=== PATIENT | male | born 1995 | race Caucasian/White ===

== ENCOUNTER 2017-02-07 11:19 | Emergency (ER) | payer MEDICAID ==
[2017-02-07] MEDS ORDERED: LORazepam 2 MG/ML DISP.SYRIN IV ONE (11:24)
[2017-02-07] MEDS ORDERED: NORMAL SALINE 1,000 ML IV ONE (11:24)
[2017-02-07] MEDS ORDERED: LORazepam 2 MG/ML DISP.SYRIN ONE (11:25)
[2017-02-07 11:40] LABS: Hematocrit 44.8 % (42.0-52.0); Hemoglobin 14.8 gm/dL (13.5-18.0); Mean Cell Volume 91.2 fl (78-100); Mean Corpuscular Hemoglobin 30.1 pg (27-31); Mean Platelet Volume 9.1 fl (6.0-9.5); Neutrophil # 4.9 K/mm3 (1.3-6.0); Neutrophil % 55.3 % (42-75.0); Platelet Count 277 K/mm3 (150-450); Red Blood Count 4.91 M/mm3 (4.7-6.0); Red Cell Distribution Width 13.8 % (11.5-14.0); White Blood Count 8.8 K/mm3 (4.0-10.5)
[2017-02-07 11:53] LABS: ALT 35 U/L (19-67); AST 31 U/L (0-48); Albumin * 4.1 gm/dl (3.4-5.0); Alkaline Phosphatase * 78 U/L (50-170); BUN/Creatinine Ratio 10.6 (9.0-21.6); Bilirubin, Total 0.6 mg/dL (0.0-1.1); Blood Urea Nitrogen 17 mg/dL (6-23); Ca. Corrected For Albumin 8.9 mg/dL (8.4-10.2); Calcium * 9.3 mg/dL (7.9-10.9); Carbon Dioxide 15.4 mmol/L (24-32.6); Chloride 105 mmol/L (97-106); Glucose * 146 mg/dL (70-110); Magnesium 2.2 mg/dL (1.2-2.8); Potassium 4.4 mmol/L (3.4-4.6); Sodium 144 mmol/L (132-142); Total Protein 7.2 gm/dL (6.2-8.2)
--- OUTSIDE RECORDS SUMMARY | 2017-02-07 11:59 | XMS REPORT | Continuity of Care Document ---
:1995 Author Organization [facility] ([facility]) Address [address] [place] [address] Phone [phone] Care Team Providers Name Role Phone Jose Zavaleta Primary Care Provider [phone] Source Comments This disclosure is being made pursuant to the Care Everywhere program, applicable federal and state laws, and may not contain all informaitonavailable regarding this patient.[facility] ([facility]) Active Allergies and Adverse Reactions No Known Allergies Current Medications Prescription Sig. Disp. Refills Start Date End Date Status TAZORAC 0.1 % gel gel 6 12/01/2014 Active CLINDAMYCIN 1 % gel 6 01/29/2015 Active doxycycline monohydrate Take 100 mg by Active 100 mg tablet mouth 2 times daily Active Problems Problem Noted Date Shoulder instability 07/02/2014 Left shoulder pain 07/02/2014 Labral tear of shoulder 07/02/2014 Bankart lesion of left shoulder 07/02/2014 Social History Tobacco Use Types Packs/Day Years Used Date Never Smoker Smokeless Tobacco: Never Used Last Filed Vital Signs Vital Sign Reading Time Taken Blood Pressure 129/67 02/09/2015 8:16 AM CDT Pulse 76 02/09/2015 8:16 AM CDT Temperature 37.3 C (99.1 F) 02/09/2015 8:16 AM CDT Respiratory Rate 18 02/09/2015 12:46 PM CDT Height 1.778 m (5' 10") 02/08/2015 2:30 PM CDT Weight 76.3 kg (168 lb 3.4 oz) 02/08/2015 2:30 PM CDT Body Mass Index 24.14 02/08/2015 2:30 PM CDT Oxygen Saturation 98% 02/09/2015 8:16 AM CDT Plan of Care Health Maintenance Due Date Last Done Comments Hepatitis B Vaccine (1 of 3 - Primary Series) 1997 HPV Vaccine (1 of 3 - Male 3 Dose Series) 2008 Tdap Vaccine 2008 Meningococcal Vaccine (1 of 1) 2013 Lipid Disorder Screening 2015 MMR Vaccine 2015 Td Vaccine 2015 Varicella Vaccine (1 of 2 - Adult - No Evidence of 2015 Immunity) Influenza Vaccine: Seasonal (Season Ended) 2017 Results from Last 3 Months Not on file
[2017-02-07 12:27] LABS: Urine Bilirubin Negative (NEGATIVE); Urine Ketone Negative (NEGATIVE); Urine Nitrite Negative (NEGATIVE); Urine Protein 30 mg/dL (NEGATIVE); Urine Specific Gravity 1.025 SP.GR. (1.005-1.030); Urine Urobilinogen Normal (NORMAL)
[2017-02-07 12:38] LABS: Urine Appearance Clear; Urine Bacteria TRACE; Urine Blood 10 /ul (NEGATIVE); Urine Color Yellow; Urine RBC None Seen /hpf (0-5); Urine WBC None Seen /hpf (0-5)
[2017-02-07 13:03] LABS: Cocaine Ur Negative (NEGATIVE); Urine Barbiturate Negative (NEGATIVE); Urine Opiates Negative (NEGATIVE); Urine PCP Negative (NEGATIVE)
[2017-02-07 13:08] LABS: Urine Benzodiazepines Positive (NEGATIVE); Urine THC Positive (NEGATIVE)
--- NOTE | 2017-02-07 13:56 | ERNOTE ---
Neuro HPI ER Record Presenting Symptoms: other - seizure activity Time Seen by Provider: 02/07/17 11:23 Source: patient, EMS Exam Limitations: no limitations - pt was post-ictal when the ambulance arrived Immunizations: IMMUNIZATION HX Immunizations Up to Date Yes History of Influenza Vaccine No Hx Pneumococcal Vaccination No Allergies/Adverse Reactions: Allergies Allergy/AdvReac Type Severity Reaction Status Date / Time isotretinoin [From Accutane] Allergy Intermediate Other Verified 05/02/16 15:47 Home Medications: HOME MEDICATIONS Albuterol Sulfate [Proair Hfa] 1 - 2 puff IH Q4H PRN 02/07/17 [Last Taken Unknown] Doxycycline Hyclate [Vibratab] 100 mg PO DAILY 02/07/17 [Last Taken Unknown] Tazarotene [Tazorac] 1 appl TP DAILY 02/07/17 [Last Taken Unknown] - History of Present Illness Narrative: Patient was working outside in the [employer] and he apparently was not drinking adequate fluids started sweating profusely got what he said was felt a little bit weak and then had a brief episode of seizures. The patient is not seizing at this time and the postictal period had resolved by the time he got to the emergency room. Onset: sudden onset Severity: moderate - Character of Deficits Baseline Cognition: Present: alert, oriented x 4 Baseline Gait: Present: walks w/o assistance Associated Symptoms: Reports: sweating Review of Systems - Review of Systems Constitutional: Present: See HPI, diaphoresis EYE: Present: no symptoms reported ENT: Present: no symptoms reported Respiratory: Present: no symptoms reported Cardiology: Present: no symptoms reported Gastrointestinal/Abdominal: Present: no symptoms reported Genitourinary: Present: no symptoms reported Musculoskeletal: Present: no symptoms reported Skin: Present: no symptoms reported Neurological: Present: no symptoms reported Endocrine: Present: no symptoms reported Hematologic/Lymphatic: Present: no symptoms reported Psych: Present: no symptoms reported - Patient's Past Medical History Patient History - Medical: Bipolar, Other Patient History - Cardiac/Respiratory: No pertinent hx Patient History - Cancer: No Hx of Cancer Patient History - Surgical Procedures: T & A, Other Patient History - Other: None - Social History Living Situations: home Abuse History: Hx of Substance Use Psych History: Hx of Bipolar Disorder, Current tx/ever been on anti-depressants or anti-anxiety meds Smoking Status: Never smoker Have you smoked in the past 12 months: No Alcohol Use: none Drug Use: none - Immunizations Immunizations Up to Date: Yes Hx Pneumococcal Vaccination: No History of Influenza Vaccine: No Physical Exam - Physical Exam General Appearance: Present: wd/wn, alert, no apparent distress Eye Exam: Normal inspection: bilateral, PERRL: bilateral Ears, Nose, Throat: Present: normal ENT inspection, H, normal pharynx Neck: Present: normal inspection, nontender Respiratory: Present: no respiratory distress, normal breath sounds, no accessory muscle use, chest nontender, lungs clear Cardiovascular/Chest: Present: regular rate, rhythm, no murmur, normal peripheral pulses Gastrointestinal/Abdominal: Present: normal bowel sounds, nontender, nondistended, soft, no organomegaly Rectal Exam: Present: deferred Back Exam: Present: normal inspection, normal range of motion Extremity Exam: Present: normal inspection, non-tender, no edema, normal range of motion Neurological Exam: Present: alert, oriented, normal mood/affect Skin Exam: Present: normal color, diaphoresis Lymphatic Exam: Present: no adenopathy ED Progress - Results and Orders Patient's Lab Results:: I have reviewed the patient's lab results. - Vital Signs Patient's Vital Signs:: I have reviewed the patient's vital signs. Vital Signs: Vital Signs 02/07/17 02/07/17 02/07/17 11:21 11:30 11:58 Temperature 36.2 C L Pulse Rate 97 104 H 98 Respiratory 20 19 Rate Blood Pressure 144/69 141/68 O2 Sat by Pulse 97 100 Oximetry - Progress/Reassessment Chief Complaint: Seizure Activity Progress:: Improved Plan - Plan Plan: Patient has continued to improve entire time is in the emergency department. While I do believe that there is a component of dehydration present this patient , we have to consider that possibly the amphetamine and benzodiazepine and/or the marijuana use has been contributing to some of this process as well. Patient will be sent home in improved condition he will follow-up with his family physician and arrange for an outpatient EEG. Departure Clinical Impression: Dehydration, Drug use - Departure Disposition: Home self-care Condition: Good Instructions: Dehydration, Adult, [id number]
[2017-02-07 14:22] VITALS: BP 134/80
== END 2017-02-07 14:15 | disposition home or self-care (01) ==
LOC: ER 11:19
DX: E86.0 Dehydration (principal); F19.90 Other psychoactive substance use, unspecified, uncomplicated
CPT/HCPCS: 36415; 80053; 80307; 81001; 82550; 83735; 85025; 96360; 96374; 99284; G0481

== ENCOUNTER 2017-02-17 14:06 | Emergency (ER) | payer MEDICAID ==
--- OUTSIDE RECORDS SUMMARY | 2017-02-17 14:29 | XMS REPORT | Continuity of Care Document ---
:1995 Author Organization [facility] ([facility]) Address [address] [place] [address] Phone [phone] Care Team Providers Name Role Phone Jose Zavaleta Primary Care Provider [phone] Source Comments This disclosure is being made pursuant to the Care Everywhere program, applicable federal and state laws, and may not contain all informaitonavailable regarding this patient.[facility] ([facility]) Active Allergies and Adverse Reactions No [...]
[2017-02-17] MEDS ORDERED: NORMAL SALINE 1,000 ML IV ONE (14:35)
--- NOTE | 2017-02-17 14:48 | ERNOTE ---
Neuro HPI ER Record Presenting Symptoms: other - seizure Time Seen by Provider: 02/17/17 14:20 Source: patient, family Exam Limitations: no limitations Immunizations: IMMUNIZATION HX Immunizations Up to Date Yes History of Influenza Vaccine No Hx Pneumococcal Vaccination No Allergies/Adverse Reactions: Allergies Allergy/AdvReac Type Severity Reaction Status Date / Time isotretinoin [From Accutane] Allergy Intermediate Other Verified 02/17/17 14:17 Home Medications: HOME MEDICATIONS Adderall 10 mg Tablet 02/17/17 [Last Taken Unknown] Ativan 02/17/17 [Last Taken Unknown] Xanax 02/17/17 [Last Taken Unknown] - History of Present Illness Narrative: Patient has no established seizure history. Per his mother he had one seizure at age 18 possible related to the medication he was taking at that time, no seizure since till 02/17/17. At that day he was working in the heat, had a brief seizure that had resolved on arrival in the ER and he was discharged, did not follow up with his PCP yet. Today he was walking to the gas station when he collapsed and possibly had a seizure again observed by friends, reported to EMS. On arrival in the ER patient complaints of headache only, denies any injury , is sweating profusely. Admits to using THC, denies any other drugs besides besides his prescription adderal and benzos. He is seeing a psychiatrist in [place] now. Date (Duration): 02/17/17 Time (Timing): 13:45 - Patient's Past Medical History Patient History - Medical: ADHD, Bipolar, Other Patient History - Cardiac/Respiratory: No pertinent hx Patient History - Cancer: No Hx of Cancer Patient History - Surgical Procedures: T & A, Other Patient History - Other: None - Social History Living Situations: home Abuse History: Hx of Substance Use Psych History: Hx of Bipolar Disorder, Current tx/ever been on anti-depressants or anti-anxiety meds Smoking Status: Never smoker Alcohol Use: none Drug Use: marijuana - Immunizations Immunizations Up to Date: Yes Hx Pneumococcal Vaccination: No History of Influenza Vaccine: No Physical Exam - Physical Exam General Appearance: Present: wd/wn, alert, no apparent distress Eye Exam: Normal inspection: bilateral, PERRL: bilateral Ears, Nose, Throat: Present: normal ENT inspection, normal pharynx Neck: Present: normal inspection, nontender, supple, full range of motion Respiratory: Present: no respiratory distress, normal breath sounds, no accessory muscle use, lungs clear Cardiovascular/Chest: Present: regular rate, rhythm, no murmur Gastrointestinal/Abdominal: Present: normal bowel sounds, nontender, nondistended Extremity Exam: Present: no edema Neurological Exam: Present: alert, normal mood/affect, no motor/sensory deficits Skin Exam: Present: normal color, diaphoresis ED Progress - Results and Orders Patient's Lab Results:: I have reviewed the patient's lab results. - Vital Signs Patient's Vital Signs:: I have reviewed the patient's vital signs. Vital Signs: Vital Signs 02/17/17 14:10 Temperature 36.7 C Pulse Rate 129 H Respiratory 18 Rate Blood Pressure 114/61 O2 Sat by Pulse 97 Oximetry - EKG EKG: NSR - sinustachycardia EKG read: Interp. by me - CT/Ultrasound CT/Ultrasound Narrative: CT head: no acute changes - Progress/Reassessment Chief Complaint: Seizure Activity Progress Note-Subjective: 02/17/17 15:20 patient alert and oriented, does not remember events, skin dry 02/17/17 16:55 discussed results, patient feeling much better, headache resolved, no seizure here, heart rate normal Departure Clinical Impression: Seizure - Departure Disposition: Home self-care Condition: Good Instructions: Seizure, Adult, [id number] Additional Instructions: call your doctor tomorrow for follow up, you might need further testing like an EEG, do not drive until you have been cleared by your doctor Referrals: Jose Zavaleta MD [Staff Physician] -
[2017-02-17 14:51] LABS: Hematocrit 48.6 % (42.0-52.0); Hemoglobin 16.8 gm/dL (13.5-18.0); Mean Cell Volume 88.2 fl (78-100); Mean Corpuscular Hemoglobin 30.5 pg (27-31); Mean Corpuscular Hgb Conc 34.6 g/dl (32-36); Neutrophil # 5.9 K/mm3 (1.3-6.0); Neutrophil % 64.3 % (42-75.0); Platelet Count 303 K/mm3 (150-450); Red Blood Count 5.51 M/mm3 (4.7-6.0); Red Cell Distribution Width 13.2 % (11.5-14.0); White Blood Count 9.1 K/mm3 (4.0-10.5)
[2017-02-17 15:05] LABS: Albumin * 4.5 gm/dl (3.4-5.0); Anion Gap 24.9 mmol/L (6.8-13.8); BUN/Creatinine Ratio 7.1 (9.0-21.6); Bilirubin, Total 0.8 mg/dL (0.0-1.1); Ca. Corrected For Albumin 9.4 mg/dL (8.4-10.2); Calcium * 10.1 mg/dL (7.9-10.9); Potassium 4.9 mmol/L (3.4-4.6); Total Protein 7.9 gm/dL (6.2-8.2)
[2017-02-17] MEDS ORDERED: ACETAMINOPHEN 325 MG TABLET PO ONE (15:19)
[2017-02-17] MEDS ORDERED: ACETAMINOPHEN 325 MG TABLET ONE (15:20)
[2017-02-17 16:32] LABS: Cocaine Ur Negative (NEGATIVE); Urine Barbiturate Negative (NEGATIVE); Urine PCP Negative (NEGATIVE)
[2017-02-17 16:32] LABS: Urine Appearance Clear; Urine Bilirubin Negative (NEGATIVE); Urine Color Yellow
[2017-02-17 16:33] LABS: Urine Blood 5 /ul (NEGATIVE); Urine Ketone Large mg/dL (NEGATIVE); Urine Nitrite Negative (NEGATIVE); Urine Protein 30 mg/dL (NEGATIVE); Urine Specific Gravity 1.025 SP.GR. (1.005-1.030); Urine Urobilinogen Normal (NORMAL); Urine pH 6.5 pH (5.0-7.0)
[2017-02-17 16:40] LABS: Urine Bacteria None Seen; Urine RBC 0-5 /hpf (0-5); Urine WBC None Seen /hpf (0-5)
[2017-02-17 16:41] LABS: Urine Benzodiazepines Positive (NEGATIVE); Urine Opiates Positive (NEGATIVE); Urine THC Positive (NEGATIVE)
[2017-02-17 17:10] VITALS: BP 124/83
== END 2017-02-17 16:59 | disposition home or self-care (01) ==
LOC: ER 14:06
DX: R56.9 Unspecified convulsions (principal)